=== PATIENT | female | born 1980 | race Caucasian/White ===

== ENCOUNTER → 2024-02-01 | Outpatient (CLI) | payer OTHER, SELFPAY ==
--- NOTE | 2024-02-01 | EMB_PTH ---
PATIENT: FAIZA SERRA LOC: [facility] U#:[id number] AGE/SX: 43/F ROOM: RE02/01/[address]: Dr. Dolores He DO : 1980 BED: DIS: 02/01/2024 SPEC #: [id number] RECD: 02/01/24 13:51 STATUS: EUSEBIO MADDI #: [id number] CHANDA: 02/01/24 00:[address]: Dolores He DEPT: SURGICAL PATHOLOGY RECD BY: Ez Dillon ENTERED: 02/01/24 13:51 SP TYPE: ENDOM BX/C MAN DR: Xiao Primary Care Phys Tissues: Endometrium, NOS Procedures: Surgery Specimen Level IV Comments: @ Specimen number changed from [id number] to [id number] @ on 02/01/24 at 1353 by SHANIQUA. HEADER OPERATION: Endometrial biopsy PRE-OP DIAGNOSIS: Menorrhagia TISSUE SUBMITTED: Endometrial lining MICROSCOPIC DIAGNOSIS Endometrium, biopsy: Proliferative endometrium with focal glandular breakdown. AMAnna 02/02/2024 MICROSCOPIC DESCRIPTION Slides are reviewed. GROSS DESCRIPTION Received is one container labeled with the patient's name and not further designated. The specimen consists of multiple irregular fragments of wright mucoid tissue mixed with wright -pink soft tissue that in aggregate measure 2.5 x 2.0 x 0.3 cm. The specimen is totally submitted in one cassette. 02/01/2024 TC:5 CPT:30996
[2024-02-04 14:09] LABS: HPV APTIMA, High Risk Negative (Negative)
== END | disposition home or self-care (01) ==
PROVIDERS: Referring Provider Obstetrics & Gynecology; Visit Provider Obstetrics & Gynecology
DX: Z12.4 Encounter for screening for malignant neoplasm of cervix (principal); N92.0 Excessive and frequent menstruation with regular cycle
CPT/HCPCS: 87624; 88175; 88305; G0145

== ENCOUNTER 2024-02-22 05:20 | Day surgery (SDC) | payer OTHER, SELFPAY ==
--- NOTE | 2024-02-17 08:52 | EKG12_ITS ---
Test Reason : PRE OP Blood Pressure : / mmHG Vent. Rate : 047 BPM Atrial Rate : 047 BPM P-R Int : 162 ms QRS Dur : 098 ms QT Int : 452 ms P-R-T Axes : 019 -03 042 degrees QTc Int : 400 ms Sinus bradycardia Septal infarct , age undetermined Abnormal ECG Confirmed by SUZANNE KING, GILBERT ([id number]), pictures editor LAVERN JACOB ([id number]) on 02/17/2024 1:57:34 PM Referred By: Dolores He Confirmed By:GILBERT PALACIOS MD
[2024-02-17 09:58] LABS: Hematocrit 40.4 % (37-47); Hemoglobin 13.4 g/dL (12.0-15.0); Mean Corp Hgb Conc 33.2 g/dL (32-36); Mean Corpuscular Hgb 29.8 pg (27.0-32.0); Mean Corpuscular Volume 89.8 fL (81-99); Mean Platelet Vol. 10.3 fl (6.2-12.0); Platelet Count 418 K/mm3 (150-450); RBC Distribution Width CV 13.9 % (11.6-14.6); RBC Distribution Width SD 46.1 fl (35.1-43.9)
[2024-02-17 10:03] LABS: Partial Thromboplast Time 28.8 Seconds (24.1-36.2); Prothrombin Time (Protime)PT. 13.5 SECONDS (11.7-14.9)
[2024-02-17 10:26] LABS: Magnesium 2.3 mg/dL (1.6-2.6)
[2024-02-17 10:29] LABS: ALB/GLOB Ratio 0.9 RATIO (0.9-2.4); AST(SGOT) 28 U/L (15-37); Alanine Aminotransfer ALT/SGPT 52 U/L (13-56); Albumin, Serum 3.8 g/dL (3.2-5.0); Alkaline Phosphatase 74 U/L (45-117); Anion Gap 4 (5-15); BUN 22 mg/dL (7-18); BUN/Creat Ratio 23.4 RATIO (10-20); Chloride 110 mmol/L (98-107); Creatinine, Serum 0.94 mg/dL (0.55-1.02); EST Glomerular Filtration Rate 68 mL/min (>60); Est Glom Filt Rate - Afr Amer 82 mL/min (>60); Globulin 4.1 g/dL (2.2-4.2); Glucose 114 mg/dL (74-106); Potassium 3.6 mmol/L (3.5-5.1); Protein, Total 7.9 g/dL (6.4-8.2); Sodium Level 139 mmol/L (136-145)
[2024-02-22] VITALS (12 sets, daily range): BP systolic 89–127; BP diastolic 57–88; PULSE 57–75; RESP 14–22; TEMP 36.1–37.3; O2SAT 92–100; BMI 33.5
[2024-02-22] MEDS: Celecoxib 200 MG Capsule 400 MG PO (06:22)
[2024-02-22] MEDS: Acetaminophen 500 MG Tablet 1000 MG PO (06:22)
[2024-02-22] MEDS: Phenazopyridine 95 MG Tablet 190 MG PO (06:23)
[2024-02-22] MEDS: Gabapentin 600 MG Tablet PO (06:23)
[2024-02-22] MEDS: dexAMETHasone 4 MG/ML Vial 8 MG IV (06:24)
[2024-02-22] MEDS: Magnesium 1 GM over 15 mins IV (06:24)
[2024-02-22] MEDS: Lactated Ringers 1,000 ML 40 ML IV (06:25)
--- NOTE | 2024-02-22 07:02 | PCM.PRE.AN2 ---
ASA Classification* ASA Classification ASA Classification: 2 Assessment & Plan Anesthesia* Anesthesia Assessment Anesthesia Assessment: Discussed sedation and/or anesthesia options, risks, benefits, and alternatives with patient/parents/legal guardian/POA. Questions invited. The patient/parents/legal guardian/POA seems to understand and agrees to proceed with anesthesia plan. Reviewed the physical assessment, medical history, allergy history and patient home medications list prior to surgery/procedure/anesthetic and documented any changes. Performed airway and anesthesia risk assessments. Anesthesia Type Anesthesia Type: General (see written pre anesthesia record for full assessment) Anesthesia Focused Assessment* Temperature: 99.1 F Pulse Rate: 57 Blood Pressure: 126/88 Respiratory Rate: 14 Pulse Ox: 99 Airway Assessment Mouth opens: >3 cm Mallampati Score: II Focused Labs Anesthesia Preop lab: CBC WBC 9.0 K/mm3 (4.4-11.0) 02/17/24 09:14 RBC 4.50 M/mm3 (4.2-5.4) 02/17/24 09:14 Hgb 13.4 g/dL (12.0-15.0) 02/17/24 09:14 Hct 40.4 % (37-47) 02/17/24 09:14 Plt Count 418 K/mm3 (150-450) 02/17/24 09:14 CHEMISTRY Potassium 3.6 mmol/L (3.5-5.1) 02/17/24 09:14 Sodium 139 mmol/L (136-145) 02/17/24 09:14 Magnesium 2.3 mg/dL (1.6-2.6) 02/17/24 09:13 BUN 22 mg/dL (7-18) H 02/17/24 09:14 Creatinine 0.94 mg/dL (0.55-1.02) 02/17/24 09:14 Glucose 114 mg/dL (74-106) H 02/17/24 09:14 COAG PT 13.5 SECONDS (11.7-14.9) 02/17/24 09:13 Urine Test Negative Negative 04/02/16 06:15 Pre-Assessment Diagnosis/Proposed Procedure Planned Operative Procedure(s): TOTAL ROBOTIC HYSTERECTOMY CYSTO Anesthesia History 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 When Was Last Pacemaker Check QUESTION #4 FULL TEXT: You/Your Family Experience fever (hyperthermia) with Anesthesia Last Oral Intake Last Oral intake: Last Oral Intake NPO since 03:00 02/22/24 06:18 Meds taken in AM with sips of Yes 02/22/24 06:18 water? Meds patient instructed to AMLODIPINE 02/22/24 06:18 take am of surgery PONV PONV - cover machine operator: PONV - cover machine operator Female Yes 02/10/24 11:32 HX of Motion Sickness Yes 02/10/24 11:32 HX of N/V After Surgery No 02/10/24 11:32 Non-Smoker No 02/10/24 11:32 Duration of Surgery greater Yes 02/10/24 11:32 than 60 minutes Number of Risk Factors 3 02/10/24 11:32 PONV Score Moderate Risk 02/10/24 11:32 Height & Weight Height & Weight: Anesthesia: Height & Weight Height 5 ft 6 in 02/22/24 06:18 Weight: 94.2 kg 02/22/24 06:18 Body Mass Index (BMI) 33.5 02/22/24 06:18 Respiratory Assessment Respiratory Assessment - cover machine operator: Respiratory Tract Infection Hx - cover machine operator Hx Respiratory Tract Infection No 02/10/24 11:32 STOP Sleep Apnea STOP Sleep Apnea - cover machine operator: STOP Sleep Apnea - cover machine operator Hx Hypertension Yes: CONTROLLED WITH MEDS 02/10/24 11:32 Hx Sleep Apnea No 02/10/24 11:32 CPAP BIPAP Do you snore loudly (louder No 02/10/24 11:32 than talking or can be heard Do you often feel tired/ No 02/10/24 11:32 fatigued/ sleepy during daytime? Has anyone observed you stop No 02/10/24 11:32 breathing during sleep? STOP Results Negative 02/10/24 11:32 QUESTION #5 FULL TEXT : Do you snore loudly (louder than talking or can be heard through closed doors)? Tobacco Use History Tobacco Use History - cover machine operator: Tobacco Use History - cover machine operator Tobacco Use Smoking Status Current every day smoker 02/10/24 11:32 Hx Tobacco Use Yes 02/10/24 11:32 Years Smoking Packs Smoked per Day Smoking Cessation Date was within the last 15 years Hx Smoking Cessation Date Hx Smoking Cessation Counseling Hematologic Medial History Hematologic Hx - cover machine operator: Hematologic Medical Hx - severity of illness coordinator Hx of Blood Transfusion No 02/10/24 11:32 Hx of Transfusion in last 3 No 02/10/24 11:32 Months Date of Last Transfusion (if within last 3 months) Ever experience any problems No 02/10/24 11:32 with transfusion(s)? Specify any problems Hx of Preganancy in last 3 No 02/10/24 11:32 Months Nurse Filling Out Transfusion DSCHRIBER 02/10/24 11:32 & Questions: Date: 02/10/24 02/10/24 11:32 Time: 11:33 02/10/24 11:32 Patient unable to answer at this time (ie. confused, unrespo /Reproduction History /Reproductive History - cover machine operator: /Reproductive Hx- cover machine operator Hx Now No 02/10/24 11:32 Gestational Age (in weeks): EDC: Hx Hx Para Hx Section SAB No 02/10/24 11:32 Active Medications Active Medications: Current Medications Generic Name Dose Route Start Last Admin Trade Name Katie PRN Reason Stop Dose Admin Acetaminophen 1,000 mg 02/22/24 07:30 02/22/24 06:22 Acetaminophen 500 Mg Tablet PO 02/22/24 07:31 1,000 mg PREOP ONE Administration Celecoxib 400 mg 02/22/24 07:30 02/22/24 06:22 Celecoxib 200 Mg Capsule PO 02/22/24 07:31 400 mg X1 ONE Administration Dexamethasone Sodium Phosphate 8 mg 02/22/24 07:30 02/22/24 06:24 Dexamethasone 4 Mg/Ml Vial IV 02/22/24 07:31 8 mg X1 ONE Administration Gabapentin 600 mg 02/22/24 07:30 02/22/24 06:23 Gabapentin 600 Mg Tablet PO 02/22/24 07:31 600 mg PREOP ONE Administration Lactated Ringer's 1,000 mls @ 40 mls/hr 02/22/24 07:30 02/22/24 06:25 IV 40 mls/hr .Q25H EDER Administration Lactated Ringer's 1,000 mls @ 70 mls/hr 02/22/24 07:30 IV .[id number] EDER Magnesium Sulfate 1 gm/ 102 mls @ 408 mls/hr 02/22/24 07:30 02/22/24 06:56 Dextrose IV 02/22/24 07:44 Infused X1 ONE Infusion Clindamycin Phosphate 900 mg in 50 mls @ 75 mls/hr 02/22/24 08:25 Cleocin IV 02/22/24 09:04 PREOP ONE Gentamicin Sulfate 480 mg/ 62 mls @ 100 mls/hr 02/22/24 08:25 Dextrose IV 02/22/24 09:02 PREOP ONE Insulin Human Lispro 0 unit 02/22/24 07:30 Insulin Lispro 100 Unit/Ml Insuln.Pen SC 02/22/24 13:30 Q4H PRN PRN BG >/= 180, SEE PROTOCOL Protocol Ondansetron HCl 4 mg 02/22/24 07:30 Ondansetron 4 Mg/2 Ml Vial IV 02/22/24 07:31 X1 ONE Phenazopyridine HCl 190 mg 02/22/24 07:30 02/22/24 06:23 Phenazopyridine 95 Mg Tablet PO 02/22/24 07:31 190 mg X1 ONE Administration PFSH Medical History Wears glasses Wears contact lenses Loose, teeth Discoloration of skin Low iron High cholesterol Back pain Migraine headache Gastric reflux Smoker History of edema Bradycardia History of echocardiogram Cardiology follow-up encounter Hypertension Home Medications ?Medication ?Instructions ?Recorded ?Last Taken ?Type epinephrine 0.3 mg/0.3 mL 0.3 mg IM X1 03/30/16 Unknown History injection, auto-injector amlodipine 10 mg tablet 10 mg PO BID 12/24/23 02/22/24 History butalbital 50 mg-acetaminophen 325 1 cap PO Q4H PRN migraine headache 12/24/23 Unknown History mg-caffeine 40 mg-codeine 30 mg cap gemfibrozil 600 mg tablet (Lopid) 600 mg PO BID 12/24/23 02/21/24 History hydrochlorothiazide 12.5 mg capsule 12.5 mg PO DAILY 12/24/23 02/21/24 History metoprolol succinate 50 mg 50 mg PO QHS 12/24/23 02/21/24 History tablet,extended release 24 hr multivitamin 1 tab PO DAILY 12/24/23 02/21/24 History omeprazole 40 mg capsule,delayed 40 mg PO QHS 12/24/23 02/21/24 History release ferrous sulfate 142 mg (45 mg 142 mg PO QHS 02/10/24 02/21/24 History iron) tablet,extended release (Slow Release Iron) Allergy/AdvReac Type Severity Reaction Status Date / Time Cephalosporins Allergy Severe Anaphylaxis Verified 02/10/24 11:28 Penicillins Allergy Severe Hives Verified 02/10/24 11:28 bee pollen Allergy Anaphylaxis Verified 02/10/24 11:27 shellfish derived Allergy Anaphylaxis Verified 02/10/24 11:27 lisinopril AdvReac Intermediate Other Verified 02/10/24 11:28 Family History Sister Cancer liver Surgical History S/P appendectomy S/P oophorectomy Status post bilateral salpingectomy Social History current occupational status: employed 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
--- NOTE | 2024-02-22 07:24 | HP.PCM_ITS ---
History and Physical Date of Admission: 02/22/24 Intake Vital Signs 12/23/2412:59 02/01/2408:01 02/01/2408:02 Height 5 ft 6 in 5 ft 6 in 5 ft 6 in Weight: 211 lb 210 lb BMI 34.0 33.9 BP 132/78 H 148/93 H Intake Visit Reasons: EMB Thoracic Medicine Physician Required: No Is patient in pain?: No Allergies bee pollen Allergy (Verified 02/01/24 08:00) Anaphylaxisshellfish derived Allergy (Verified 02/01/24 08:00) Anaphylaxis Medications ?Medication ?Instructions ?Recorded ?Confirmed ?Type epinephrine 0.3 mg/0.3 mL 0.3 mg IM X1 03/30/16 02/01/24 History injection, auto-injector amlodipine 10 mg tablet 10 mg PO DAILY 12/24/23 02/01/24 History butalbital 50 mg-acetaminophen 325 1 cap PO Q4H PRN 12/24/23 02/01/24 History mg-caffeine 40 mg-codeine 30 mg cap gemfibrozil 600 mg tablet (Lopid) 600 mg PO DAILY 12/24/23 02/01/24 History hydrochlorothiazide 12.5 mg capsule 12.5 mg PO DAILY 12/24/23 02/01/24 History metoprolol succinate 50 mg 50 mg PO DAILY 12/24/23 02/01/24 History tablet,extended release 24 hr multivitamin 1 tab PO DAILY 12/24/23 02/01/24 History omeprazole 40 mg capsule,delayed 40 mg PO DAILY 12/24/23 02/01/24 History release Post menopausal: No Patient : No : No PFSH PFSH Surgical History S/P appendectomy S/P oophorectomy Status post bilateral salpingectomy Family History Sister Cancer liver Social History current occupational status: employed 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 She is scheduled for a robotic hysterectomy. Pap also planned for today. She is a smoker and 43 and is not a candidate for OCPs. She had a tubal ligation and prefers not to use IUDs. She states that her PCP just performed an entire thyroid panel and it was normal. Her ultrasound showed a 7 cm uterus with surgically absent left ovary, and a 7mm cyst on the right ovary. This was performed at [place]. She states that her bleeding is so heavy at times that she needs to pull clogs of clots out of the drain when showering. 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 Her left ovary and both fallopian tubes were removed previously. She is a nullip and has limited vaginal access on previous exams. Female Reproductive History Cycle Length: 21-35 Bleeding Duration: 5 Questions: metorrhagia: No, sexually active: Yes, dyspareunia: No and PCB: No Menopausal Symptoms: No hot flashes, No night sweats, No weight change, No mood changes, No difficulty concentrating, No sleep problems and No change in libido ROS Const Constitutional: Reports as per HPI; Denies fatigue, increased appetite, poor appetite, night sweats, weight gain or weight loss Cardio Card: Denies chest pain Resp Resp: Denies cough or dyspnea GI GI: Reports as per HPI; Denies abdominal pain, bloating, constipation, nausea or vomiting : Reports as per HPI and other; Denies difficulty voiding, dysuria, hematuria, hot flashes, nipple discharge, pelvic pain, prolapse symptoms, urinary frequency, urinary incontinence, urinary urgency, vaginal discharge, vaginal dryness, vaginal odor or vaginal pruritus Skin Skin/Breast: Denies changing lesions, breast mass, breast pain, breast skin changes or nipple discharge Psych Psych: Denies anxiety, change in libido, depression or difficulty concentrating Exam Const General: cooperative, healthy appearing, comfortable, no acute distress, well developed and well groomed HENMT Head: normal to inspection and normocephalic Ears: hearing grossly normal bilaterally and external ears normal Nose: external nose normal Face and sinus: normal facial exam Neck Neck: normal visual inspection, full ROM and no lymphadenopathy Thyroid: thyroid normal Resp Effort & Inspection: normal respiratory effort GI Inspection: normal to inspection and non-distended Palpation: soft, no hepatosplenomegaly and no guarding General: bladder normal to palpation External Female Exam: normal external appearance, normal appearance of the urethra and no lesions Urethra: normal appearance of the urethra and normal palpation Speculum Exam - Vagina: normal appearance of the vagina and normal vaginal discharge Speculum Exam - Cervix: normal appearance of the cervix, no cervical discharge, no lesions and nontender Bimanual Exam- Vagina & Uterus: normal bimanual exam, uterine size normal, bladder normal to palpation, No tender, uterine mobility normal, consistency normal, non-tender and no cervical motion tenderness Bimanual Exam- Adnexa, other: normal adnexae, no masses and non-tender Skin General: no rashes or lesions noted Neuro General: patient alert, moves all extremities and no focal motor deficits Extrem General: normal to inspection and no pedal edema Psych Appearance: grossly normal Mental Status: mental status grossly normal Affect: normal affect Speech and Movement: speech and movement normal Attitude: cooperative Office Procedures Endometrial Biopsy Endometrial Biopsy Test: Yes declined Consent Signed: Yes Time out checklist: patient tenaculum used: No dilator used: No Details: Cervix prepped with betadine and pipelle inserted into uterus without complication. Specimen obtained and sent to lab for analysis. All instruments removed from vagina without complications. Excellent hemostasis noted. Coding Level of Care Code Off vis,est,level 4 Diagnoses Menorrhagia N92.0 CPT Codes Endometrial Biopsy (59851) Assessment and Plan Assessment and Plan (1) Menorrhagia: Status: Acute Orders: Orders Endometrial Biopsy 02/01/24 N92.0 - Excessive and frequent menstruation with regular cycle PAP IG HPV APTIMA 16/18,45 02/01/24 Z12.4 - Encounter for screening for malignant neoplasm of cervix Plan After discussing the patient's diagnosis and treatment plan options, patient wishes to proceed with surgical management. I have discussed with the patient the risks, benefits, and alternatives of the procedure which include but are not limited to risks of anesthesia, bleeding, infection, possible damage to bowel, bladder, or surrounding vasculature which could lead to additional surgery to evaluate any complications. Patient agrees to procedure and wishes to proceed. ACOG/uptodate references given for additional information regarding procedure. plan is for robotic hysterectomy and cystoscopy.
[2024-02-22 07:25] LABS: Bedside Glucose 74 mg/dL (74-106)
--- NOTE | 2024-02-22 07:25 | PCM.DC ---
Discharge Instructions Diet Discharge Diet: No restrictions Activity May resume sexual activity in: 6 weeks Weight Bearing Status: Full weight bearing Additional Activity Instructions:: no lifting, pushing, or pulling more than 20 pounds until further discussion Dressing / Incision Call your doctor if your incision/area has: Continuous Slow Oozing, Sudden Increased Bleeding, Increased Pain/ Swelling, Increased Redness and Foul Smelling Discharge Call your doctor if you observe: Fever of 101 or Higher, Using more than 1 pad per hour, Shortness of breath, Chest pain and Uncontrolled pain Suture Line Care: Avoid Pulling/Pushing and Avoid Pinching/Bending Remove Dressing in: 1 week (if present) Cleanse incision/area with: Soap & Water and Keep Dressing Clean & Dry Follow Up Care Please Follow Up With: Dolores He DO When: Call to make an appointment with your doctor for a postop visit in 2 and 6 weeks (may already be set up) Test Results: Test results from this visit will be discussed in further detail at your follow-up appointment, if applicable. Discharge Plan Admission Primary Reason for Your Visit: hysterectomy Attending Provider: Dolores eH Primary Care Provider: Care Physician,Xiao Primary Consulting Providers: Gerber Schneider; Mati Lee Instructions Print Language: Slovenian Discharge Orders/Prescriptions Prescriptions: New ibuprofen 800 mg tablet 800 mg PO Q8H PRN (Reason: pain) Qty: 30 0RF oxycodone-acetaminophen [Percocet] 5-325 mg tablet 1 tab PO Q4H PRN (Reason: pain) 7 Days Qty: 30 0RF Rx Instructions: 1-2 tabs q 4 hrs as needed for pain Continued uoorvbsetu-pgugsxmrwn-wqw-cod [id number] mg capsule 1 cap PO Q4H PRN (Reason: migraine headache) amlodipine 10 mg tablet 10 mg PO BID metoprolol succinate 50 mg tablet extended release 24 hr 50 mg PO QHS gemfibrozil [Lopid] 600 mg tablet 600 mg PO BID omeprazole 40 mg capsule,delayed release(DR/EC) 40 mg PO QHS hydrochlorothiazide 12.5 mg capsule 12.5 mg PO DAILY multivitamin Tablet 1 tab PO DAILY epinephrine 0.3 MG syringe 0.3 mg IM X1 Slow Release Iron 142 mg (45 mg iron) tablet extended release 142 mg PO QHS Referrals / Follow Up: Care Physician,No Primary [Primary Care Provider] - Disposition Disposition (needs filled in before D/C Order can be placed): Home, Self Care
[2024-02-22] MEDS: GENTAMICIN IV (07:28)
[2024-02-22] MEDS: DEXTROSE 5% IV (07:28)
[2024-02-22] MEDS: WATER IV (07:28)
--- NOTE | 2024-02-22 07:30 | HYST_PTH ---
PATIENT: FAIZA SERRA [place] [facility] [place][id number] AGE/SX: 44/F ROOM: RE02/22/[address]: Dr. Dolores He DO : 1980 BED: DIS: 02/22/2024 SPEC #: [id number] RECD: 02/22/24 10:49 STATUS: EUSEBIO LINDA #: [id number] CHANDA: 02/22/24 07:[address]: Dolores He DEPT: SURGICAL PATHOLOGY RECD BY: Mackenzie Li ENTERED: 02/22/24 11:46 SP TYPE: HYSTERECT OTHR DR: MD Dr. Mati Pimentel MD No Primary Care Phys Tissues: Uterus, NOS Procedures: Surgery Specimen Level V HEADER OPERATION: Laparoscopic robotic, hysterectomy, cytoscopy PRE-OP DIAGNOSIS: Menorrhagia TISSUE SUBMITTED: Uterus, cervix MICROSCOPIC DIAGNOSIS Uterus, cervix, hysterectomy: Cervix - Chronic cystic cervicitis and squamous metaplasia. Endometrium - Proliferative endometrium. Myometrium - Intramural leiomyoma (0.3cm in greatest dimension). See comment. Caesar 02/23/2024 COMMENT Please make reference to previous specimen [id number] endometrium, biopsy with diagnosis of proliferative endometrium with focal glandular breakdown. MICROSCOPIC DESCRIPTION Slides are reviewed. GROSS DESCRIPTION Received in fixative is one container labeled with the patient's name and designated uterus and cervix. The specimen consists of a hysterectomy specimen consisting of uterus with cervix. The uterus with cervix weighs 52 gm and measures 7.5 x 4.5 x 3.5 cm. The serosal surface is wright glistening. The ectocervical mucosa is unremarkable. The external os is circular in contour and covered with hemorrhagic mucoid material. The endocervical canal measures 2.5 cm in length and the endocervical mucosa is wright glistening and unremarkable. The triangular endometrial cavity measures 4.0 cm in length and 2.5 cm in width. The endometrium is wright, glistening without any mass lesions and measures 0.1 cm in thickness. Sections of the uterine wall reveal a small wright nodular mass measuring 0.3cm in greatest dimension. Uterine wall measures up to 1.5cm in thickness. Warehouse Assistant sections are submitted in six cassettes as follows: 1 - anterior cervix, 2 - posterior cervix, 3 & 4 - anterior uterine wall, 5 & 6 - posterior uterine wall (cassette 6 also contains wright nodular mass). SJ: 02/22/2024 TC:1 CPT: 81718
[2024-02-22] MEDS: Clindamycin 900 MG/50 ML BAG 75 MG IV (07:41)
[2024-02-22] MEDS: Bupivacaine 0.25% 30 ML Vial (08:00)
--- NOTE | 2024-02-22 08:59 | PCM.OPRPT ---
Problems Associated Problem List Diagnoses (1) Menorrhagia: Report of Operation Date of Procedure: 02/22/24 Pre-Operative Diagnosis: menorrhagia Post-Operative Diagnosis: menorrhagia Surgery/Procedure Performed:: total robotic hysterectomy, cystoscopy Description of Surgical Findings:: Findings: [ ] size uterus, normal appearing ovaries and tubes. On exploration of the abdominal cavity the uterus, adnexa, bowel, and liver were found to be normal. Cystoscopy showed no evidence of leaking at approximately 250 cc of normal saline, positive ureteral orifices and jet flow are seen and no suture material was appreciated in the bladder. Specimens removed: Uterus and cervix, [Bilateral tubes and ovaries] Reason for surgery: This is a [ ]-year-old G[ ], P[ ] who presented to my office with history of [blank] the planned procedure is for a robotic hysterectomy the risks benefits and alternatives were discussed with the patient the patient had a clear understanding of the procedure and a consent form was signed. Surgeon: Dolores He Type of Anesthesia: General Anesthesiologist: Roly Monroy Specimen's removed: uterus, cervix Drains: none Estimated Blood Loss (mL): 10cc Fluids Replaced: 900cc Description of Procedure: Procedure: The patient was placed in the dorsal low lithotomy position and prepped and draped in the normal sterile fashion both abdominally and in the perineum. Her legs were placed in stirrups a Vo catheter was inserted into the urethra without difficulty. A weighted speculum was placed in the vagina and a single-tooth tenaculum was used to grasp the anterior lip of the cervix. An advincula uterine manipulator was inserted through the cervix without complication. It was then tied into place at the 2 and 10:00 locations on the cervix. Gloves were changed and attention was turned towards the abdomen. Approximately 23 cm above the pubic symphysis in the midline, and after Marcaine injection, a 8 mm incision was made. An 8 mm trocar was inserted through the laparoscope, then inserted into the abdomen under direct visualization using the laparoscope. Good abdominal placement was noted and no complications were appreciated. An air seal device was utilized to create pneumoperitoneum. At 12 cm lateral to the midline on the left and right sides 8 mm accessory ports were placed. Next a left upper quadrant 8 mm assistant branch operations manager port site was placed. The patient was placed in steep Trendelenburg position. The robot was docked. The hysterectomy was initiated first by taking down the round ligament on each side using the vessel sealer device. The fallopian tubes and left ovary were surgically absent. The broad ligament was then and taken down using the vessel sealer device. Next the bladder flap was taken down without complication. This was done using monopolar cautery to the level of the cervical vaginal junction. After the bladder flap was created, uterine vessels were then isolated and cauterized using the vessel sealer device and EndoShears. At this point the uterine vessels were taken down further starting from the ascending branch, dissecting along the edges of the cervix to the level of the cervical vaginal junction with hemostasis appreciated. The cervical vaginal junction was then using monopolar cautery in a circumferential pattern across the superior aspect of the cervix. The specimen was delivered through the vagina and sent to pathology. The remaining vaginal cuff was then closed using a V lock suture. This was performed in a running technique. Excellent hemostasis was obtained and good closure was noted. Irrigation was then performed. All operative sites were noted to be hemostatic. A cystoscopy was performed with a 70 degree cystoscope through the urethra into the bladder without complication. The bladder was instilled with approximately 250 cc of normal saline. Intraoperative images were made. Ureteral orifices and jets were identified. No suture material was appreciated in the bladder. The bladder was then drained and cystoscope was removed. The abdominal cavity was again examined using the laparoscope after the robot was undocked. All operative sites were noted to be hemostatic. The trochars were removed under direct visualization without complication and pneumoperitoneum was reduced. At this point the skin was then closed using 4-0 Monocryl subcuticular stitch and sealed with surgical glue. The patient tolerated the procedure well sponge lap and needle counts were correct x2 the patient was taken to the recovery room in stable condition. Procedure Start Time: 07:58 Procedure Stop Time: 09:14 Complications none Admit VTE Documentation VTE Present on Admission: Yes VTE Mechan Device Prophylaxis: SCD's VTE Pharm Prophylaxis ordered?: No Multi Select Codes Urinary/Genital Urinary/Genital CPT Codes: 34109 Cystoscopy and 34533 TLH+BS/O <250gr uterus
[2024-02-22] MEDS: Ondansetron 4 MG/2 ML Vial IV (09:00)
--- NOTE | 2024-02-22 09:28 | PCM.POST.ANE ---
Anesthesia: Postop Eval I Current Vital Signs Temperature: 96.9 F Pulse Rate: 65 Blood Pressure: 89/57 Respiratory Rate: 22 Pulse Ox: 95 Oxygen Delivery Method: Nasal Cannula Oxygen Flow Rate (L/min): 4 Assessment Airway patent: Yes Spontaneous unlabored respirations: Yes Mental status: Calm nausea: No Vomiting: No Anesthesia Complication: No Fluid Hydration Crystalloid volume administer (ml): 900 Total IV fluid infused: 900 Progress Note Anesthesia document: Postop Eval 1 completed: Yes
--- NOTE | 2024-02-22 09:34 | POSTOPAN2_ITS ---
Anesthesia Postop Eval I Sum Postop Eval Completion status Anesthesia document: Postop Eval 1 completed: Yes Anesthesia Postop Eval I Summary Anesthesia Postop Eval I Summary: Anesthesia Postop Eval I: Assessment Summary Airway patent Yes 02/22/24 09:28 AIR CONDITIONER INSTALLER HELPER.[email or web address] Spontaneous unlabored Yes 02/22/24 09:28 AIR CONDITIONER INSTALLER HELPER.JDEF respirations Mental status Calm 02/22/24 09:28 AIR CONDITIONER INSTALLER HELPER.JDEF nausea No 02/22/24 09:28 AIR CONDITIONER INSTALLER HELPER.JDEF Vomiting No 02/22/24 09:28 AIR CONDITIONER INSTALLER HELPER.JDEF Anesthesia Postop Eval I: Fluid Summary Crystalloid volume administer 900 02/22/24 09:28 AIR CONDITIONER INSTALLER HELPER.JDEF (ml) Colloids volume administered ( ml) Blood Product volume administered (ml) Total IV fluid infused 900 02/22/24 09:28 AIR CONDITIONER INSTALLER HELPER.JDEF Anesthesia Postop Eval I: Summary Notes Anesthesia Complication No 02/22/24 09:28 AIR CONDITIONER INSTALLER HELPER.JDEF Anesthesia Complication Comment: Post-operative progress note Anesthesia: Postop Eval II Evaluation Mental status: Awake Pain Level: 0 nausea: No Vomiting: No
--- NOTE | 2024-02-22 09:34 | PCM.POSTANE2 ---
Anesthesia Postop Eval I Sum Postop Eval Completion status Anesthesia document: Postop Eval 1 completed: Yes Anesthesia Postop Eval I Summary Anesthesia Postop Eval I Summary: Anesthesia Postop Eval I: Assessment Summary Airway patent Yes 02/22/24 09:28 BRACE END MAINSPRING FORMER.JDEF Spontaneous unlabored Yes 02/22/24 09:28 BRACE END MAINSPRING FORMER.JDEF respirations Mental status Calm 02/22/24 09:28 BRACE END MAINSPRING FORMER.JDEF nausea No 02/22/24 09:28 BRACE END MAINSPRING FORMER.JDEF Vomiting No 02/22/24 09:28 BRACE END MAINSPRING FORMER.JDEF Anesthesia Postop Eval I: Fluid Summary Crystalloid volume administer 900 02/22/24 09:28 BRACE END MAINSPRING FORMER.JDEF (ml) Colloids volume administered ( ml) Blood Product volume administered (ml) Total IV fluid infused 900 02/22/24 09:28 BRACE END MAINSPRING FORMER.JDEF Anesthesia Postop Eval I: Summary Notes Anesthesia Complication No 02/22/24 09:28 BRACE END MAINSPRING FORMER.JDEF Anesthesia Complication Comment: Post-operative progress note Anesthesia: Postop Eval II Evaluation Mental status: Awake Pain Level: 0 nausea: No Vomiting: No
[2024-02-22] MEDS: Lactated Ringers @ 70 MLS/HR 70 ML IV (09:35)
[2024-02-22] MEDS: oxyCODONE 5 MG Tablet PO (11:37)
== END 2024-02-22 12:17 | disposition home or self-care (01) ==
LOC: SDC 05:21 → AC 05:23
PROVIDERS: Anesthesiology; Referring Provider Obstetrics & Gynecology; Visit Provider Obstetrics & Gynecology
PROC: 0UT94ZZ Resection of Uterus, Percutaneous Endoscopic Approach (ICD-10-PCS; CPT 58570; principal; 2024-02-22 07:10)
DX: N72 Inflammatory disease of cervix uteri (principal); N92.0 Excessive and frequent menstruation with regular cycle; N87.9 Dysplasia of cervix uteri, unspecified; D25.1 Intramural leiomyoma of uterus; F17.200 Nicotine dependence, unspecified, uncomplicated; I10 Essential (primary) hypertension; K21.9 Gastro-esophageal reflux disease without esophagitis; E78.00 Pure hypercholesterolemia, unspecified; Z79.899 Other long term (current) drug therapy
CPT/HCPCS: 58570; S2900; 00840; 36415; 80053; 82962; 83735; 85027; 85610; 85730; 86850; 86900; 86901; 88307; 93005; J7120; J2405; J3475